=== PATIENT | male | born 1960 | race African-American/Black ===

== ENCOUNTER → 2022-01-16 | Outpatient (CLI) | payer SELFPAY ==
[~2022-01-16] VITALS: Ht 172.7 cm; Wt 73.0 kg
[2022-01-16 11:26] VITALS: BP 143/91; PULSE 82; TEMP 97.5
== END ==
LOC: COL.CARD 10:26
DX: I11.0 Hypertensive heart disease with heart failure (principal); I50.9 Heart failure, unspecified; I21.4 Non-ST elevation (NSTEMI) myocardial infarction
CPT/HCPCS: A9500